=== PATIENT | male | born 1955 | race Caucasian/White ===

== ENCOUNTER 2020-08-01 22:02 | Emergency (ER) | payer OTHER ==
[2020-08-01 22:06] VITALS: BP 123/59; PULSE 65; TEMP 98.6; BMI 46.0
== END 2020-08-02 02:42 | disposition home or self-care (01) ==
LOC: JER 22:02
DX: G40.89 Other seizures (principal)
CPT/HCPCS: 70450-TC; 99284-25

== ENCOUNTER 2021-03-16 11:28 | Observation (INO) | payer OTHER ==
[2021-03-16] MEDS ORDERED: REMDESIVIR 200 MG in SODIUM CHLORIDE 250 ML IVPB ONE (14:02)
[2021-03-16 14:50] LABS: VENOUS BASE EXCESS -3.9 mmol/L (-2-2); VENOUS O2 SATURATION 42.3 % (70-80); VENOUS PCO2 55.9 mmHg (38-52); VENOUS PH 7.253 (7.310-7.410)
[2021-03-16 15:04] LABS: BASO % 1.3 % (0-2.0); EOS % 6.2 % (0-4.5); HEMOGLOBIN 12.5 GM/dL (11.7-16.9); LYMPH % 16.3 % (8-40); MCH 29.1 pg (25.7-33.7); MCHC 32.8 g/dl (32.0-35.9); MEAN CELL VOLUME 88.8 fl (80-96); MEAN PLT VOLUME 8.5 fl (7.5-11.1); MONO % 9.1 % (3.8-10.2); NEUT % 67.1 % (42.8-82.8); PLATELET COUNT 217 10^3/uL (134-434); RBC 4.28 M/mm3 (4.00-5.60); RDW 14.6 % (11.9-15.9); WHITE BLOOD COUNT 4.8 K/mm3 (4.0-10.0)
[2021-03-16 15:12] LABS: INR 1.03 (0.83-1.09); PROTHROMBIN TIME (PATIENT) 11.8 SEC (9.7-13.0)
[2021-03-16 15:15] LABS: ACTIVATED PTT 31.1 SECONDS (25.2-36.5)
[2021-03-16 15:19] LABS: CHLORIDE 108 mmol/L (98-107); SODIUM 139 mmol/L (136-145)
[2021-03-16 15:23] LABS: ALBUMIN 3.2 g/dl (3.4-5.0); ANION GAP 7 MMOL/L (8-16); CALCIUM 8.6 mg/dL (8.5-10.1); CO2 25 mmol/L (21-32); GLUCOSE,RANDOM 97 mg/dL (74-106)
[2021-03-16 15:24] LABS: BLOOD UREA NITROGEN 15.6 mg/dL (7-18); MAGNESIUM 2.1 mg/dL (1.8-2.4)
[2021-03-16 15:26] LABS: SGOT/AST 38 U/L (15-37); SGPT/ALT 29 U/L (13-61)
[2021-03-16 15:28] LABS: BILIRUBIN,TOTAL 0.3 mg/dL (0.2-1); TOT PROT 6.6 g/dl (6.4-8.2)
[2021-03-16 15:29] LABS: ALK PHOS 117 U/L (45-117)
[2021-03-16 15:32] LABS: N-TERMINAL BNP 19.7 pg/ml (5-125)
[2021-03-16 16:45] LABS: PH,URINE 5.5 (5.0-8.0); URINE APPEARANCE CLEAR; URINE BILIRUBIN NEGATIVE (NEGATIVE); URINE COLOR YELLOW; URINE GLUCOSE (UA) NEGATIVE (NEGATIVE); URINE KETONE NEGATIVE (NEGATIVE); URINE LEUK ESTERASE NEGATIVE (NEGATIVE); URINE NITRITE NEGATIVE (NEGATIVE); URINE PROTEIN NEGATIVE (NEGATIVE); URINE UROBILINOGEN 0.2 mg/dL (0.2-1.0)
[2021-03-16] MEDS ORDERED: LISINOPRIL 5 MG TABLET ONE (23:16)
[2021-03-16] MEDS: LISINOPRIL 10 MG TABLET PO SCH (23:21)
[2021-03-16] MEDS: OXcarbazepine 300 MG TABLET (UD) PO SCH (23:21)
[2021-03-16] MEDS: TOPIRAMATE 100 MG TABLET PO SCH (23:21)
[2021-03-17] MEDS ORDERED: TAMSULOSIN HCL 0.4 MG CAP ONE (07:54)
[2021-03-17] MEDS: TAMSULOSIN HCL 0.4 MG CAP PO SCH (08:50)
[2021-03-17] MEDS: PRAMIPEXOLE DIHYDROCHLORIDE 0.5 MG TABLET PO SCH ×2 (08:54→17:19)
[2021-03-17] MEDS: FLUoxetine HCL 10 MG CAPSULE PO SCH (10:09)
[2021-03-17] MEDS: TOPIRAMATE 100 MG TABLET PO SCH ×2 (10:09→22:36)
[2021-03-17] MEDS: LISINOPRIL 10 MG TABLET PO SCH ×2 (10:09→22:35)
[2021-03-17] MEDS: OXcarbazepine 300 MG TABLET (UD) PO SCH ×2 (10:09→22:36)
[2021-03-17] MEDS: FUROSEMIDE 20 MG TABLET (FP) PO SCH (10:09)
[2021-03-17 13:11] VITALS: BMI 44.4
[2021-03-17] MEDS ORDERED: REMDESIVIR 100 MG in SODIUM CHLORIDE 270 ML IVPB ONE (20:00)
[2021-03-18] MEDS: PRAMIPEXOLE DIHYDROCHLORIDE 0.5 MG TABLET PO SCH ×2 (06:11→17:08)
[2021-03-18] MEDS: TAMSULOSIN HCL 0.4 MG CAP PO SCH (08:30)
[2021-03-18 10:00] LABS: BASO % 0.5 % (0-2.0); EOS % 4.5 % (0-4.5); HEMATOCRIT 38.1 % (35.4-49); HEMOGLOBIN 12.5 GM/dL (11.7-16.9); LYMPH % 20.6 % (8-40); MCH 28.9 pg (25.7-33.7); MCHC 32.7 g/dl (32.0-35.9); MEAN CELL VOLUME 88.4 fl (80-96); MEAN PLT VOLUME 8.2 fl (7.5-11.1); MONO % 4.4 % (3.8-10.2); PLATELET COUNT 218 10^3/uL (134-434); RBC 4.31 M/mm3 (4.00-5.60); RDW 13.8 % (11.9-15.9); WHITE BLOOD COUNT 5.3 K/mm3 (4.0-10.0)
[2021-03-18 10:09] LABS: INR 1.09 (0.83-1.09); PROTHROMBIN TIME (PATIENT) 12.6 SEC (9.7-13.0)
[2021-03-18 10:11] LABS: ACTIVATED PTT 27.9 SECONDS (25.2-36.5)
[2021-03-18 10:37] LABS: ALBUMIN 3.3 g/dl (3.4-5.0); CALCIUM 8.4 mg/dL (8.5-10.1); CREATININE 0.9 mg/dL (0.55-1.3)
[2021-03-18 10:38] LABS: BLOOD UREA NITROGEN 14.4 mg/dL (7-18); MAGNESIUM 1.9 mg/dL (1.8-2.4)
[2021-03-18 10:40] LABS: BILIRUBIN,TOTAL 0.3 mg/dL (0.2-1); TOT PROT 6.2 g/dl (6.4-8.2)
[2021-03-18 10:41] LABS: PHOSPHOROUS 2.9 mg/dL (2.5-4.9)
[2021-03-18] MEDS: TOPIRAMATE 100 MG TABLET PO SCH ×2 (11:04→21:30)
[2021-03-18] MEDS: FUROSEMIDE 20 MG TABLET (FP) PO SCH (11:05)
[2021-03-18] MEDS: LISINOPRIL 10 MG TABLET PO SCH ×2 (11:05→21:30)
[2021-03-18] MEDS: FLUoxetine HCL 10 MG CAPSULE PO SCH (11:05)
[2021-03-18] MEDS: OXcarbazepine 300 MG TABLET (UD) PO SCH ×2 (11:07→21:31)
[2021-03-18 11:13] LABS: ERYTHROCYTE SEDIMENTATION RATE 24 mm/hr (0-20)
[2021-03-19] MEDS: PRAMIPEXOLE DIHYDROCHLORIDE 0.5 MG TABLET PO SCH ×2 (06:06→15:22)
[2021-03-19] MEDS: TAMSULOSIN HCL 0.4 MG CAP PO SCH (10:30)
[2021-03-19] MEDS: OXcarbazepine 300 MG TABLET (UD) PO SCH ×2 (10:30→22:36)
[2021-03-19] MEDS: LISINOPRIL 10 MG TABLET PO SCH ×2 (10:30→22:35)
[2021-03-19] MEDS: FUROSEMIDE 20 MG TABLET (FP) PO SCH (10:30)
[2021-03-19] MEDS: ENOXAPARIN NA (PORCINE) 40 MG/0.4 ML DISP.SYRIN SQ SCH (10:31)
[2021-03-19] MEDS: FLUoxetine HCL 10 MG CAPSULE PO SCH (10:31)
[2021-03-19] MEDS: TOPIRAMATE 100 MG TABLET PO SCH ×2 (10:31→22:36)
[2021-03-20] MEDS: PRAMIPEXOLE DIHYDROCHLORIDE 0.5 MG TABLET PO SCH ×2 (07:02→19:38)
[2021-03-20] MEDS: TOPIRAMATE 100 MG TABLET PO SCH ×2 (09:34→21:01)
[2021-03-20] MEDS: LISINOPRIL 10 MG TABLET PO SCH ×2 (09:34→21:01)
[2021-03-20] MEDS: TAMSULOSIN HCL 0.4 MG CAP PO SCH (09:35)
[2021-03-20] MEDS: FUROSEMIDE 20 MG TABLET (FP) PO SCH (09:35)
[2021-03-20] MEDS: FLUoxetine HCL 10 MG CAPSULE PO SCH (09:35)
[2021-03-20] MEDS: ENOXAPARIN NA (PORCINE) 40 MG/0.4 ML DISP.SYRIN SQ SCH (09:35)
[2021-03-20] MEDS: OXcarbazepine 300 MG TABLET (UD) PO SCH ×2 (09:36→21:03)
[2021-03-20] MEDS ORDERED: PRAMIPEXOLE DIHYDROCHLORIDE 0.5 MG TABLET PO SCH (19:45)
[2021-03-20] MEDS ORDERED: PRAMIPEXOLE DIHYDROCHLORIDE 0.5 MG TABLET PO ONE (20:15)
[2021-03-21] MEDS: PRAMIPEXOLE DIHYDROCHLORIDE 0.5 MG TABLET PO SCH ×2 (06:00→17:15)
[2021-03-21] MEDS: LISINOPRIL 10 MG TABLET PO SCH ×2 (09:29→21:39)
[2021-03-21] MEDS: FUROSEMIDE 20 MG TABLET (FP) PO SCH (09:29)
[2021-03-21] MEDS: ENOXAPARIN NA (PORCINE) 40 MG/0.4 ML DISP.SYRIN SQ SCH (09:29)
[2021-03-21] MEDS: TOPIRAMATE 100 MG TABLET PO SCH ×2 (09:29→21:39)
[2021-03-21] MEDS: TAMSULOSIN HCL 0.4 MG CAP PO SCH (09:29)
[2021-03-21] MEDS: FLUoxetine HCL 10 MG CAPSULE PO SCH (09:31)
[2021-03-21] MEDS: OXcarbazepine 300 MG TABLET (UD) PO SCH ×2 (09:32→21:40)
[2021-03-22] MEDS: PRAMIPEXOLE DIHYDROCHLORIDE 0.5 MG TABLET PO SCH ×2 (06:02→17:09)
[2021-03-22] MEDS: TAMSULOSIN HCL 0.4 MG CAP PO SCH (08:20)
[2021-03-22] MEDS: FLUoxetine HCL 10 MG CAPSULE PO SCH (10:00)
[2021-03-22] MEDS: OXcarbazepine 300 MG TABLET (UD) PO SCH ×2 (10:00→21:20)
[2021-03-22] MEDS: LISINOPRIL 10 MG TABLET PO SCH ×2 (10:01→21:15)
[2021-03-22] MEDS: FUROSEMIDE 20 MG TABLET (FP) PO SCH (10:01)
[2021-03-22] MEDS: TOPIRAMATE 100 MG TABLET PO SCH ×2 (10:01→21:15)
[2021-03-22] MEDS: ENOXAPARIN NA (PORCINE) 40 MG/0.4 ML DISP.SYRIN SQ SCH (10:01)
[2021-03-23] MEDS: PRAMIPEXOLE DIHYDROCHLORIDE 0.5 MG TABLET PO SCH ×2 (06:28→16:24)
[2021-03-23] MEDS: FLUoxetine HCL 10 MG CAPSULE PO SCH (10:05)
[2021-03-23] MEDS: TAMSULOSIN HCL 0.4 MG CAP PO SCH (10:05)
[2021-03-23] MEDS: LISINOPRIL 10 MG TABLET PO SCH ×2 (10:05→22:05)
[2021-03-23] MEDS: FUROSEMIDE 20 MG TABLET (FP) PO SCH (10:05)
[2021-03-23] MEDS: ENOXAPARIN NA (PORCINE) 40 MG/0.4 ML DISP.SYRIN SQ SCH (10:06)
[2021-03-23] MEDS: OXcarbazepine 300 MG TABLET (UD) PO SCH ×2 (10:06→22:05)
[2021-03-23] MEDS: TOPIRAMATE 100 MG TABLET PO SCH ×2 (10:06→22:05)
[2021-03-24] MEDS: PRAMIPEXOLE DIHYDROCHLORIDE 0.5 MG TABLET PO SCH ×2 (06:00→18:17)
[2021-03-24] MEDS: OXcarbazepine 300 MG TABLET (UD) PO SCH ×2 (10:23→21:12)
[2021-03-24] MEDS: FLUoxetine HCL 10 MG CAPSULE PO SCH (10:25)
[2021-03-24] MEDS: LISINOPRIL 10 MG TABLET PO SCH ×2 (10:25→21:12)
[2021-03-24] MEDS: FUROSEMIDE 20 MG TABLET (FP) PO SCH (10:25)
[2021-03-24] MEDS: TOPIRAMATE 100 MG TABLET PO SCH ×2 (10:25→21:12)
[2021-03-24] MEDS: TAMSULOSIN HCL 0.4 MG CAP PO SCH (10:25)
[2021-03-24] MEDS: ENOXAPARIN NA (PORCINE) 40 MG/0.4 ML DISP.SYRIN SQ SCH (10:26)
[2021-03-25] MEDS: PRAMIPEXOLE DIHYDROCHLORIDE 0.5 MG TABLET PO SCH ×2 (06:17→17:40)
[2021-03-25] MEDS: FUROSEMIDE 20 MG TABLET (FP) PO SCH (11:08)
[2021-03-25] MEDS: TAMSULOSIN HCL 0.4 MG CAP PO SCH (11:08)
[2021-03-25] MEDS: LISINOPRIL 10 MG TABLET PO SCH ×2 (11:08→21:37)
[2021-03-25] MEDS: ENOXAPARIN NA (PORCINE) 40 MG/0.4 ML DISP.SYRIN SQ SCH (11:08)
[2021-03-25] MEDS: TOPIRAMATE 100 MG TABLET PO SCH ×2 (11:08→21:37)
[2021-03-25] MEDS: FLUoxetine HCL 10 MG CAPSULE PO SCH (11:09)
[2021-03-25] MEDS: OXcarbazepine 300 MG TABLET (UD) PO SCH ×2 (11:10→21:37)
[2021-03-26 05:45] VITALS: PULSE 53
[2021-03-26] MEDS: PRAMIPEXOLE DIHYDROCHLORIDE 0.5 MG TABLET PO SCH ×2 (06:19→16:39)
[2021-03-26] MEDS: TOPIRAMATE 100 MG TABLET PO SCH (09:05)
[2021-03-26] MEDS: FUROSEMIDE 20 MG TABLET (FP) PO SCH (09:05)
[2021-03-26] MEDS: TAMSULOSIN HCL 0.4 MG CAP PO SCH (09:05)
[2021-03-26] MEDS: ENOXAPARIN NA (PORCINE) 40 MG/0.4 ML DISP.SYRIN SQ SCH (09:05)
[2021-03-26] MEDS: LISINOPRIL 10 MG TABLET PO SCH (09:05)
[2021-03-26] MEDS: FLUoxetine HCL 10 MG CAPSULE PO SCH (09:06)
[2021-03-26] MEDS: OXcarbazepine 300 MG TABLET (UD) PO SCH (09:07)
[2021-03-26 15:46] VITALS: BP 145/79; TEMP 97.5
[2021-03-26] MEDS ORDERED: ACETAMINOPHEN 325 MG TABLET (FP) PO ONE (19:54)
== END 2021-03-26 21:50 ==
LOC: JER 11:28 → JERBED 15:58 → INTOOBSV 15:58 → J8W 03-17 12:53
PROVIDERS: ADMIT Internal Medicine; ATTEND Internal Medicine
PROC: 3E023GC Introduction of Other Therapeutic Substance into Muscle, Percutaneous Approach (ICD-10-PCS; principal; 2021-03-16)
PROC: 3E033GC Introduction of Other Therapeutic Substance into Peripheral Vein, Percutaneous Approach (ICD-10-PCS; 2021-03-16)
DX: U07.1 COVID-19 (principal); G20 Parkinson's disease; R42 Dizziness and giddiness; R53.1 Weakness; G40.909 Epilepsy, unspecified, not intractable, without status epilepticus; J44.9 Chronic obstructive pulmonary disease, unspecified; R29.6 Repeated falls; W18.39XA Other fall on same level, initial encounter; Z91.81 History of falling; E66.01 Morbid (severe) obesity due to excess calories; Z68.41 Body mass index [BMI] 40.0-44.9, adult; Y93.89 Activity, other specified; Y92.099 Unspecified place in other non-institutional residence as the place of occurrence of the external cause; R63.1 Polydipsia; Z99.81 Dependence on supplemental oxygen; I10 Essential (primary) hypertension; N40.0 Benign prostatic hyperplasia without lower urinary tract symptoms; Z88.8 Allergy status to other drugs, medicaments and biological substances
CPT/HCPCS: 36415; 71045-TC-FY; 80053; 81003; 82550; 82553; 82728; 82803; 83036; 83605; 83615; 83735; 83880; 84100; 84484; 85025; 85379; 85610; 85651; 85730; 86140; 87040; 87086; 87804; 93005; 93010; 94660; 94761; 96365; 96367; 96372; 97116-GP; 97161-GP; 99285-25; C9399; C9803; G0378; U0003; U0005

== ENCOUNTER 2021-04-20 11:57 | Emergency (ER) | payer OTHER ==
[2021-04-20 12:22] VITALS: BP 122/73; PULSE 63; TEMP 97.6; BMI 47.0
[2021-04-20] MEDS ORDERED: ACETAMINOPHEN 500 MG TABLET (FP) PO ONE (12:49)
[2021-04-20] MEDS ORDERED: ACETAMINOPHEN 500 MG TABLET (FP) ONE (12:50)
== END 2021-04-20 14:47 | disposition home or self-care (01) ==
LOC: JERFT 11:57 → JER 11:57 → JERFT 14:47
DX: M79.641 Pain in right hand (principal)
CPT/HCPCS: 99283-25

== ENCOUNTER 2021-05-14 13:39 | Observation (INO) | payer OTHER ==
[2021-05-14 14:42] VITALS: BMI 49.4
[2021-05-14 15:31] LABS: BASO % 0.7 % (0-2.0); EOS % 3.7 % (0-4.5); HEMATOCRIT 33.7 % (35.4-49); HEMOGLOBIN 11.1 GM/dL (11.7-16.9); MCH 29.1 pg (25.7-33.7); MCHC 32.9 g/dl (32.0-35.9); MEAN CELL VOLUME 88.5 fl (80-96); MEAN PLT VOLUME 8.3 fl (7.5-11.1); MONO % 6.9 % (3.8-10.2); NEUT % 77.7 % (42.8-82.8); PLATELET COUNT 248 10^3/uL (134-434); RDW 13.6 % (11.9-15.9); WHITE BLOOD COUNT 8.4 K/mm3 (4.0-10.0)
[2021-05-14 15:42] LABS: VENOUS BASE EXCESS -6.2 mmol/L (-2-2); VENOUS O2 SATURATION 61.1 % (70-80); VENOUS PCO2 49.9 mmHg (38-52); VENOUS PH 7.25 (7.310-7.410)
[2021-05-14 15:55] LABS: URINE APPEARANCE CLEAR; URINE BILIRUBIN NEGATIVE (NEGATIVE); URINE COLOR YELLOW; URINE GLUCOSE (UA) NEGATIVE (NEGATIVE); URINE KETONE NEGATIVE (NEGATIVE); URINE LEUK ESTERASE NEGATIVE (NEGATIVE); URINE NITRITE NEGATIVE (NEGATIVE); URINE PROTEIN NEGATIVE (NEGATIVE); URINE UROBILINOGEN 0.2 mg/dL (0.2-1.0)
[2021-05-14 15:56] LABS: ALBUMIN 3.5 g/dl (3.4-5.0); BLOOD UREA NITROGEN 12.8 mg/dL (7-18); CALCIUM 8.4 mg/dL (8.5-10.1)
[2021-05-14 15:59] LABS: CREATININE 0.9 mg/dL (0.55-1.3)
[2021-05-14 16:01] LABS: BILIRUBIN,TOTAL 0.3 mg/dL (0.2-1); TOT PROT 6.7 g/dl (6.4-8.2)
[2021-05-14] MEDS ORDERED: ACETAMINOPHEN 325 MG TABLET (FP) PO PRN (16:55)
[2021-05-14] MEDS ORDERED: PATIENT'S OWN MEDICATION (NON-FORMULARY) (Oxcarbazepine [Oxtellar Xr] 600 MG Tab.Er.24h) PO SCH (22:00)
[2021-05-14] MEDS ORDERED: ENOXAPARIN NA (PORCINE) 40 MG/0.4 ML DISP.SYRIN SQ ONE (23:35)
[2021-05-15] MEDS: TOPIRAMATE 100 MG TABLET PO SCH ×2 (00:49→09:00)
[2021-05-15] MEDS: PRAMIPEXOLE DIHYDROCHLORIDE 0.5 MG TABLET PO SCH ×2 (00:49→09:00)
[2021-05-15] MEDS ORDERED: TAMSULOSIN HCL 0.4 MG CAP ONE (08:20)
[2021-05-15] MEDS ORDERED: TOPIRAMATE 25 MG TABLET ONE (08:20)
[2021-05-15] MEDS ORDERED: FUROSEMIDE 20 MG TABLET (FP) ONE (08:20)
[2021-05-15] MEDS ORDERED: ENOXAPARIN NA (PORCINE) 40 MG/0.4 ML DISP.SYRIN SQ ONE (08:21)
[2021-05-15] MEDS ORDERED: TAMSULOSIN HCL 0.4 MG CAP PO SCH (08:30)
[2021-05-15 09:12] LABS: BASO % 0.7 % (0-2.0); EOS % 2.9 % (0-4.5); HEMATOCRIT 34.5 % (35.4-49); HEMOGLOBIN 11.7 GM/dL (11.7-16.9); LYMPH % 12.2 % (8-40); MCH 29.9 pg (25.7-33.7); MEAN CELL VOLUME 87.8 fl (80-96); MEAN PLT VOLUME 8.3 fl (7.5-11.1); MONO % 7.5 % (3.8-10.2); NEUT % 76.7 % (42.8-82.8); PLATELET COUNT 194 10^3/uL (134-434); RBC 3.93 M/mm3 (4.00-5.60); RDW 13.9 % (11.9-15.9); WHITE BLOOD COUNT 6.5 K/mm3 (4.0-10.0)
[2021-05-15] MEDS ORDERED: FUROSEMIDE 20 MG TABLET (FP) PO SCH (10:00)
[2021-05-15 10:04] LABS: CALCIUM 8.7 mg/dL (8.5-10.1)
[2021-05-15 10:05] LABS: ALBUMIN 3.2 g/dl (3.4-5.0); BLOOD UREA NITROGEN 12.8 mg/dL (7-18); MAGNESIUM 2.3 mg/dL (1.8-2.4)
[2021-05-15 10:08] LABS: CREATININE 0.8 mg/dL (0.55-1.3); PHOSPHOROUS 2.8 mg/dL (2.5-4.9)
[2021-05-15 10:09] LABS: BILIRUBIN,TOTAL 0.4 mg/dL (0.2-1)
[2021-05-15 10:10] LABS: TOT PROT 6.1 g/dl (6.4-8.2)
[2021-05-15 12:08] LABS: SARS-CoV-2 NAA Not Detected (Not Detected)
[2021-05-15 17:14] VITALS: BP 121/84; PULSE 78; TEMP 98.1
[2021-05-15] MEDS: ENOXAPARIN NA (PORCINE) 40 MG/0.4 ML DISP.SYRIN SQ SCH ×2 (17:17)
== END 2021-05-15 17:45 | disposition short-term general hospital (02) ==
LOC: JER 13:39 → JERBED 16:25
PROVIDERS: ADMIT Internal Medicine; ATTEND Internal Medicine
PROC: 3E023GC Introduction of Other Therapeutic Substance into Muscle, Percutaneous Approach (ICD-10-PCS; principal; 2021-05-14)
DX: R55 Syncope and collapse (principal); G20 Parkinson's disease; R56.9 Unspecified convulsions; J44.9 Chronic obstructive pulmonary disease, unspecified; E66.01 Morbid (severe) obesity due to excess calories; Z68.42 Body mass index [BMI] 45.0-49.9, adult; Z88.8 Allergy status to other drugs, medicaments and biological substances
CPT/HCPCS: 36415; 70450-TC; 71045-TC-FY; 80053; 80183; 80201; 81003; 82803; 82962; 83735; 84100; 84484; 85025; 87086; 93005; 93010; 93306-TC; 93880-TC; 96372; 99285-25; C9803-CS; G0378; U0003; U0005

== ENCOUNTER 2021-05-17 15:34 | Emergency (ER) | payer OTHER ==
[2021-05-17 15:53] VITALS: BP 124/76; PULSE 54; TEMP 97.7; BMI 46.5
== END 2021-05-17 17:20 | disposition home or self-care (01) ==
LOC: JER 15:34
DX: S30.91XA Unspecified superficial injury of lower back and pelvis, initial encounter (principal); W01.0XXA Fall on same level from slipping, tripping and stumbling without subsequent striking against object, initial encounter
CPT/HCPCS: 99281-25

== ENCOUNTER 2021-11-21 19:29 | Emergency (ER) | payer OTHER ==
[2021-11-21 19:37] VITALS: BP 124/64; PULSE 64; RESP 20; TEMP 98; BMI 49.4
[2021-11-21] MEDS: ALBUTEROL SO4 2.5/IPRATROPIUM 0.5 INH SOL 3 ML VIAL.NEB. NEB SCH ×3 (21:15→21:52)
[2021-11-21] MEDS ORDERED: ALBUTEROL SO4 2.5/IPRATROPIUM 0.5 INH SOL 3 ML VIAL.NEB. NEB ONE (21:27)
== END 2021-11-22 00:58 ==
LOC: JER 19:29
PROC: 3E0F7GC Introduction of Other Therapeutic Substance into Respiratory Tract, Via Natural or Artificial Opening (ICD-10-PCS; principal; 2021-11-21)
DX: M25.552 Pain in left hip (principal); R06.2 Wheezing; W19.XXXA Unspecified fall, initial encounter
CPT/HCPCS: 72170-TC-FY; 73502-TC-LT-FY; 93005; 93010; 99285-25

== ENCOUNTER 2022-03-30 05:45 | Emergency (ER) | payer OTHER ==
[2022-03-30 05:59] VITALS: BMI 30.5
[2022-03-30] MEDS ORDERED: MAG HYDROX/AL HYDROX/SIMETH 30 ML UNIT-DOSE CUP PO ONE (07:53)
[2022-03-30] MEDS ORDERED: FAMOTIDINE 20 MG TABLET PO ONE (07:53)
[2022-03-30] MEDS ORDERED: LOPERAMIDE HCL 2 MG CAPSULE PO ONE (08:03)
[2022-03-30] MEDS ORDERED: LACTATED RINGERS SOLUTION 1,000 ML/1,000 ML INFUS.BAG IV SCH (08:15)
[2022-03-30] MEDS ORDERED: FAMOTIDINE 20 MG TABLET ONE (08:44)
[2022-03-30] MEDS ORDERED: MAG HYDROX/AL HYDROX/SIMETH 30 ML UNIT-DOSE CUP ONE (08:44)
[2022-03-30 10:51] LABS: EPI CELLS 4 /uL (0-25.1); HYALINE CASTS 1 /uL (0-3.1); PH,URINE 5.5 (5.0-8.0); URINE APPEARANCE CLEAR; URINE BACTERIA 10 /uL (0-1359); URINE BILIRUBIN NEGATIVE (NEGATIVE); URINE COLOR YELLOW; URINE GLUCOSE (UA) NEGATIVE (NEGATIVE); URINE KETONE TRACE (NEGATIVE); URINE LEUK ESTERASE NEGATIVE (NEGATIVE); URINE NITRITE NEGATIVE (NEGATIVE); URINE PROTEIN 1+ (NEGATIVE); URINE RBC 15 /uL (0-23.9); URINE WBC 9 /uL (0-25.8)
[2022-03-30] MEDS ORDERED: LOPERAMIDE HCL 2 MG CAPSULE ONE (10:54)
[2022-03-30 11:07] LABS: URINE CRYSTALS NO SEEN /hpf
[2022-03-30 11:09] LABS: ALBUMIN 3.5 g/dl (3.4-5.0); BLOOD UREA NITROGEN 16.4 mg/dL (7-18); CALCIUM 8.7 mg/dL (8.5-10.1)
[2022-03-30 11:12] LABS: CREATININE 1.1 mg/dL (0.55-1.3)
[2022-03-30 11:14] LABS: BILIRUBIN,TOTAL 0.4 mg/dL (0.2-1)
[2022-03-30] MEDS ORDERED: LACTATED RINGERS SOLUTION 1000 ML INFUS.BAG IV ONE (11:21)
[2022-03-30 12:00] LABS: HEMOGLOBIN 14.1 GM/dL (11.7-16.9); MCH 29.5 pg (25.7-33.7); MCHC 32.8 g/dl (32.0-35.9); MEAN PLT VOLUME 8.7 fl (7.5-11.1); PLATELET COUNT 227 10^3/uL (134-434); RBC 4.78 M/mm3 (4.00-5.60); RDW 13.9 % (11.9-15.9); WHITE BLOOD COUNT 10.4 K/mm3 (4.0-10.0)
[2022-03-30 12:54] VITALS: RESP 20
[2022-03-30 17:26] VITALS: BP 122/77; PULSE 97; TEMP 100.1
== END 2022-03-30 17:40 | disposition home or self-care (01) ==
LOC: JER 05:45
DX: R19.7 Diarrhea, unspecified (principal)
CPT/HCPCS: 36415; 74176-TC; 80053; 81003; 83036; 84443; 85027; 87045; 87046; 87086; 87186; 87324; 87449; 99285-25